=== PATIENT | male | born 1945 | race African-American/Black ===

== ENCOUNTER 2017-03-14 17:40 | Emergency (ER) | payer OTHER, MEDICAID ==
[~2017-03-14] VITALS: Ht 175.3 cm; Wt 65.0 kg
[2017-03-14 17:42] VITALS: BP 117/68
[2017-03-14 19:33] LABS: BASOPHILS % 1.2 % (0.0-2.0); HEMATOCRIT. 43.4 % (42.0-52.0); HEMOGLOBIN. 13.4 g/dL (14.0-18.0); LYMPHOCYTES % 54.1 % (20.0-50.0); MEAN CORPUSCULAR HEMOGLOBIN 25.4 pg (28.0-32.0); MEAN CORPUSCULAR VOLUME 82.1 fL (80.0-94.0); MEAN PLATELET VOLUME 10.2 fl (7.4-10.4); MONOCYTES % 9.9 % (2.0-8.0); NEUTROPHILS % 31.8 % (40.0-76.0); PLATELET 168 x1000/uL (130-400); RED BLOOD CELL COUNT 5.28 mill/uL (4.7-6.1); RED CELL DISTRIBUTION WIDTH 14.2 % (11.6-14.6)
[2017-03-14 19:42] LABS: CARBON DIOXIDE 33 mEq/L (21-32); CHLORIDE 104 mEq/L (98-107)
[2017-03-14 19:48] LABS: TROPONIN I < 0.02 ng/mL (0.00-0.04)
[2017-03-14 20:04] LABS: INR 1.1; PARTIAL THROMBOPLASTIN TIME 27.1 sec (23.4-31.0); PROTHROMBIN TIME 11.9 sec (9.4-11.6)
== END 2017-03-14 20:40 | disposition left against medical advice (07) ==
LOC: ER 17:52
DX: I10 Essential (primary) hypertension (principal); J44.1 Chronic obstructive pulmonary disease with (acute) exacerbation; R06.00 Dyspnea, unspecified; Z88.0 Allergy status to penicillin
CPT/HCPCS: 36415; 80053; 83605; 83880; 84484; 85025; 85610; 85730; 87040; 93005; 99285

== ENCOUNTER 2019-06-03 20:24 | Emergency (ER) | payer OTHER, MEDICAID ==
[~2019-06-03] VITALS: Ht 188 cm; Wt 60.0 kg
[2019-06-03] MEDS ORDERED: AZITHROMYCIN 500 MG TABLET PO ONE (23:00)
[2019-06-03] MEDS ORDERED: PREDNISONE 20MG TABLET PO ONE (23:00)
[2019-06-03] MEDS ORDERED: ALBUTEROL 6.7GM HFA INHALER ORI ONE (23:00)
[2019-06-04 01:54] VITALS: BP 115/84
== END 2019-06-04 02:03 | disposition home or self-care (01) ==
LOC: ER 20:24
DX: J44.1 Chronic obstructive pulmonary disease with (acute) exacerbation (principal); I10 Essential (primary) hypertension; Z88.0 Allergy status to penicillin
CPT/HCPCS: 71045; 93005; 99285; J7512; 87635; U0002

== ENCOUNTER 2021-11-06 18:17 | Emergency (ER) | payer MEDICAID, OTHER ==
[~2021-11-06] VITALS: Ht 188 cm; Wt 80.0 kg
[2021-11-06] MEDS ORDERED: METHOCARBAMOL 750MG TABLET PO SCH (18:45)
[2021-11-06] MEDS ORDERED: LIDOCAINE 5% PATCH TOP SCH (18:45)
[2021-11-06] MEDS ORDERED: ACETAMINOPHEN 325MG TABLET PO ONE (18:45)
[2021-11-06] MEDS ORDERED: IBUPROFEN 400MG TABLET PO ONE (18:45)
[2021-11-06 19:24] LABS: HEMATOCRIT. 34.5 % (42.0-52.0); HEMOGLOBIN. 10.8 g/dL (14.0-18.0); MEAN CORPUSCULAR HEMOGLOBIN 25.8 pg (28.0-32.0); MEAN CORPUSCULAR VOLUME 82.5 fL (80.0-94.0); MEAN PLATELET VOLUME 9.5 fl (7.4-10.4); PLATELET 175 x1000/uL (130-400); RED BLOOD CELL COUNT 4.19 mill/uL (4.7-6.1); RED CELL DISTRIBUTION WIDTH 13.5 % (11.6-14.6)
[2021-11-06 19:34] LABS: CHLORIDE 102 mEq/L (98-107)
[2021-11-06] MEDS ORDERED: IBUPROFEN 400MG TABLET PO NR (20:45)
[2021-11-06] MEDS ORDERED: SODIUM CHLORIDE 0.9% 1,000 ML IV ONE (20:45)
[2021-11-06] MEDS ORDERED: ACETAMINOPHEN 325MG TABLET PO NR (20:45)
[2021-11-06 21:14] LABS: PLATELET ESTIMATE NORMAL
[2021-11-06 23:15] LABS: CLARITY URINE CLEAR (CLEAR); COLOR URINE DARK YELLOW (YELLOW); KETONES URINE TRACE (NEGATIVE); LEUKOCYTE ESTERASE URINE 1+ (NEGATIVE); NITRITE URINE NEGATIVE (NEGATIVE); OCCULT BLOOD URINE NEGATIVE (NEGATIVE); PROTEIN URINE 1+ (NEGATIVE); SPECIFIC GRAVITY URINE 1.025 (1.005-1.030)
[2021-11-07] MEDS ORDERED: CIPR-263 MT (00:39)
[2021-11-07 01:50] VITALS: BP 153/90
== END 2021-11-07 01:50 | disposition home or self-care (01) ==
LOC: ER 18:17
DX: M54.50 Low back pain, unspecified (principal); N39.0 Urinary tract infection, site not specified; J44.9 Chronic obstructive pulmonary disease, unspecified; I10 Essential (primary) hypertension; Z88.0 Allergy status to penicillin
CPT/HCPCS: 36415; 71045; 80053; 81003; 83605; 83690; 83880; 84484; 85025; 93005; 96360; 96361; 99285; J7030